=== PATIENT | female | born 1980 | race Hispanic/Latino ===

== ENCOUNTER 2018-05-31 08:35 | Outpatient (CLI) | payer BC ==
--- NOTE | 2018-06-01 10:50 | NM ---
RADIOIODINE THYROID UPTAKE AND SCAN: HISTORY: Thyrotoxicosis, unspecified, without thyrotoxic crisis. TSH was less than 0.01 on 04/05/2018. RADIOPHARMACEUTICAL: 246 microcuries Iodine-123 administered orally. FINDINGS: There is a homogeneous distribution of tracer material in the thyroid gland without focal hot or cold nodules. The 24-hour uptake measures 47% (normal 10%-30%). IMPRESSION: Findings are consistent with hyperthyroid ([place]') disease. POS: [facility]
== END 2018-05-31 08:36 | disposition home or self-care (01) ==
LOC: NM 08:35
PROVIDERS: ATTEND Internal Medicine Endocrinology, Diabetes & Metabolism
DX: E05.90 Thyrotoxicosis, unspecified without thyrotoxic crisis or storm (principal)
CPT/HCPCS: 78014; A9516